=== PATIENT | male | born 1960 | race Caucasian/White ===

== ENCOUNTER → 2016-09-30 | Outpatient (CLI) | payer OTHER ==
[~2016-09-30] MED LIST: LEVO500T69 PO; MECL-106 PO; PANT40TA3 PO; PNT40TEC PO; PROM25TA14 PO
--- OUTSIDE RECORDS SUMMARY | 2016-09-30 08:37 | XMS REPORT | Continuity of Care Document ---
Author Author [facility] Organization [facility] Address Unknown Phone Unavailable Care Team Providers Care Ui Lead Developer Name Role Phone OLGA SOLORZANO MD PCP Insurance Providers Payer Name Policy Number Subscriber Name Relationship [facility] [id number] Hayden Oviedo 20 Self / Same As Patient Advance Directives Directive Response Recorded Date/Time Advance Directives Yes 12/31/15 10:29pm Health Care Power of Fuel Injection Servicer No 12/31/15 10:29pm Organ Donor Yes 12/31/15 10:29pm Resuscitation Status Full Code 12/31/15 10:29pm Chief Complaint and Reason for Visit Chief Complaint Abdominal/GI Problems Reason for Visit Elevated liver enzymes Vertigo Nausea and vomiting Problems Active Problems Medical Problem Onset Date Status Elevated liver enzymes Unknown Acute Nausea and vomiting Unknown Acute Puncture wound of foot, right Unknown Acute Vertigo Unknown Acute Medications Current Home Medications Medication Dose Units Route Directions Days/Qty Instructions Start Date Levofloxacin 500 Mg 1 Each Oral Daily 5 12/06/14 Pantoprazole Sodium 40 Mg 1 Tab Oral Daily 90 Days 12/31/15 Promethazine Hcl (Phenergan Tablet) 25 Mg 25 Mg Oral Every 6 Hours as needed for Nausea/Vomiting 20 01/01/16 Meclizine Hcl 25 Mg 25 Mg Oral Every 6 Hours 30 01/01/16 Past Home Medications Medication Directions Ordered Status Pantoprazole Sodium 40 Mg Tablet., 1 Tab Oral Daily 02/12/10 Discontinued Social History Social History Problem Response Recorded Date/Time Alcohol Use Occasionally Uses 12/31/2015 10:29pm Recreational Drug Use No 12/31/2015 10:29pm Recent Foreign Travel No 12/31/2015 10:29pm Recent Infectious Disease Exposure No 12/31/2015 10:29pm Hospitalization with Isolation Denies 12/31/2015 10:29pm Sexually Transmitted Disease No 12/31/2015 10:29pm Smoking Status Current Everyday Smoker 12/31/2015 10:29pm Query Response Start Date Stop Date Smoking Status Current Everyday Smoker Hospital Discharge Instructions No hospital discharge instructions. Plan of Care Discharge Date 01/01/16 1:44am Disposition 01 HOME, SELF-CARE Condition at Discharge Improved Instructions/Education Provided Vertigo (ED) Acute Nausea and Vomiting (ED) Prescriptions See Medication Section Referrals OLGA SOLORZANO MD - Primary Care Physician Additional Instructions/Education Follow-up with your primary care provider and/or Dr. Wallace as soon as possible. Use Zofran dissolved under the tongue every 4 hours as needed for nausea until you can fill the Phenergan prescription. Use Phenergan as prescribed for nausea and dizziness. You may additionally take meclizine for further treatment of dizziness. Repeat the Racheal maneuver as needed if vertigo returns. All discharge instructions reviewed with patient and/or family. Voiced understanding. Functional Status No functional status results. Allergies, Adverse Reactions, Alerts No known allergies. Immunizations Name Given Type Tetanus Booster (TDap) More than 5yrs Historical Vital Signs Acute Vital Signs Vital Response Date/Time Temperature (Fahrenheit) 97.6 degrees F (97.6 - 99.5) 12/31/2015 10:29pm Temperature (Calculated Celsius) 36.15539 degrees C (36.4 - 37.5) 12/31/2015 10:29pm Temperature Source Temporal 12/31/2015 10:29pm Pulse Rate (adult) 60 bpm (60 - 90) 01/01/2016 1:38am Respiratory Rate 16 bpm (12 - 24) 01/01/2016 1:38am O2 Sat by Pulse Oximetry 99 % (88 - 100) 01/01/2016 1:38am Blood Pressure 121/70 mm Hg 01/01/2016 1:38am Blood Pressure Mean 97 mm Hg 12/31/2015 10:29pm Pain Pain Intensity 2 12/31/2015 10:29pm Height (Feet) 6 feet 12/31/2015 10:29pm Height (Inches) 3 inches 12/31/2015 10:29pm Height (Calculated Centimeters) 190.456020 cm 12/31/2015 10:29pm Weight (Pounds) 281 pounds 12/31/2015 10:29pm Weight (Calculated Kilograms) 127.498947 kilograms 12/31/2015 10:29pm Height 6 ft 3 in Weight 281 lb Body Mass Index 35.1 kg/m^2 Results Laboratory Results Test Name Result Units Flags Reference Collection Date/Time Result Date/ Time Comments White Blood Count 7.4 10^3/uL 4.3-11.0 12/31/2015 10:43pm 12/31/2015 10 :53pm Red Blood Count 4.72 10^6/uL 4.35-5.85 12/31/2015 10:43pm 12/31/2015 10 :53pm Hemoglobin 15.0 G/DL 13.3-17.7 12/31/2015 10:43pm 12/31/2015 10:53pm Hematocrit 40 % 40-54 12/31/2015 10:43pm 12/31/2015 10:53pm Mean Corpuscular Volume 86 FL 80-99 12/31/2015 10:43pm 12/31/2015 10: 53pm Mean Corpuscular Hemoglobin 32 PG 25-34 12/31/2015 10:43pm 12/31/2015 10:53pm Mean Corpuscular Hemoglobin Concent 37 G/DL H 32-36 12/31/2015 10:43pm 10:53pm Red Cell Distribution Width 12.8 % 10.0-14.5 12/31/2015 10:43pm 2015 10:53pm Platelet Count 151 10^3/uL 130-400 12/31/2015 10:43pm 12/31/2015 10: 53pm Mean Platelet Volume 9.3 FL 7.4-10.4 12/31/2015 10:43pm 12/31/2015 10: 53pm Neutrophils (%) (Auto) 77 % H 42-75 12/31/2015 10:43pm 12/31/2015 10: 53pm Lymphocytes (%) (Auto) 13 % 12-44 12/31/2015 10:43pm 12/31/2015 10: 53pm Monocytes (%) (Auto) 6 % 0-12 12/31/2015 10:43pm 12/31/2015 10:53pm Eosinophils (%) (Auto) 4 % 0-10 12/31/2015 10:43pm 12/31/2015 10:53pm Basophils (%) (Auto) 0 % 0-10 12/31/2015 10:43pm 12/31/2015 10:53pm Neutrophils # (Auto) 5.7 X 10^3 1.8-7.8 12/31/2015 10:43pm 12/31/2015 10:53pm Lymphocytes # (Auto) 1.0 X 10^3 1.0-4.0 12/31/2015 10:43pm 12/31/2015 10:53pm Monocytes # (Auto) 0.4 X 10^3 0.0-1.0 12/31/2015 10:43pm 12/31/2015 10: 53pm Eosinophils # (Auto) 0.3 10^3/uL 0.0-0.3 12/31/2015 10:43pm 12/31/2015 10:53pm Basophils # (Auto) 0.0 10^3/uL 0.0-0.1 12/31/2015 10:43pm 12/31/2015 10 :53pm Prothrombin Time 14.8 SEC H 12.2-14.7 12/31/2015 10:43pm 12/31/2015 11: 10pm INR Comment 1.2 0.8-1.4 12/31/2015 10:43pm 12/31/2015 11:10pm INTERPRETIVE DATA SUGGESTED THERAPEUTIC RANGE FOR INR'S: VENOUS THROMBOSIS, PULMONARY EMBOLISM, OR PREVENTION OF SYSTEMIC EMBOLISM (EG. IN ATRIAL FIBRILLATION): 2.0 - 3.0 MECHANICAL PROSTHETIC HEART VALVES: 2.5 - 3.5* *NOTE: INR'S UP TO 4.5 MAY BE NECESSARY IN SELECTED GROUPS OF HIGH RISK PATIENTS. [employer] CONSENSUS CONFERENCE ON ANTITHROMBOTIC THERAPY (2000). Activated Partial Thromboplast Time 28 SEC 24-35 12/31/2015 10:43pm 07/2016 11:10pm Sodium Level 139 MMOL/L 135-145 12/31/2015 10:43pm 12/31/2015 11:11pm Potassium Level 3.4 MMOL/L L 3.6-5.0 12/31/2015 10:43pm 12/31/2015 11: 11pm Chloride Level 101 MMOL/L 98-107 12/31/2015 10:43pm 12/31/2015 11:11pm Carbon Dioxide Level 24 MMOL/L 21-32 12/31/2015 10:43pm 12/31/2015 11: 11pm Anion Gap 14 MMOL/L 5-14 12/31/2015 10:43pm 12/31/2015 11:11pm Blood Urea Nitrogen 14 MG/DL 7-18 12/31/2015 10:43pm 12/31/2015 11: 11pm Creatinine 1.11 MG/DL 0.60-1.30 12/31/2015 10:43pm 12/31/2015 11:11pm BUN/Creatinine Ratio 13 12/31/2015 10:43pm 12/31/2015 11:11pm Estimat Glomerular Filtration Rate > 60 12/31/2015 10:43pm 2015 11:11pm GFR INTERPRETIVE DATA UNITS FOR ESTIMATED GFR (eGFR): mL/min/1.73 M2 REFERENCE RANGE FOR ESTIMATED GFR (eGFR) eGFR NORMAL eGFR >60 MODERATELY DECREASED eGFR 30-59 SEVERLY DECREASED eGFR 15-29 KIDNEY FAILURE <15 (OR DIALYSIS) Glucose Level 171 MG/DL H 70-105 12/31/2015 10:43pm 12/31/2015 11:11pm Calcium Level 9.2 MG/DL 8.5-10.1 12/31/2015 10:43pm 12/31/2015 11:11pm Magnesium Level 2.4 MG/DL 1.8-2.4 12/31/2015 10:43pm 12/31/2015 11: 20pm Total Bilirubin 1.9 MG/DL H 0.1-1.0 12/31/2015 10:43pm 12/31/2015 11: 11pm Alkaline Phosphatase 85 U/L 40-136 12/31/2015 10:43pm 12/31/2015 11: 11pm Aspartate Amino Transf (AST/SGOT) 52 U/L H 5-34 12/31/2015 10:43pm 2015 11:11pm Alanine Aminotransferase (ALT/SGPT) 60 U/L H 0-55 12/31/2015 10:43pm 07/2016 11:11pm Troponin I < 0.30 NG/ML <0.30 12/31/2015 10:43pm 12/31/2015 11:20pm Myoglobin 118.0 NG/ML H 10.0-92.0 12/31/2015 10:43pm 12/31/2015 11:20pm Total Protein 7.8 G/DL 6.4-8.2 12/31/2015 10:43pm 12/31/2015 11:11pm Albumin 4.5 G/DL 3.2-4.5 12/31/2015 10:43pm 12/31/2015 11:11pm Lipase 36 U/L 8-78 12/31/2015 10:43pm 12/31/2015 11:11pm Procedures Procedure Status Date Provider(s) Tracing only of electrocardiogram Active 12/31/15 NASIM MENESES MD Tracing only of electrocardiogram Active 12/31/15 NASIM MENESES MD Encounters Encounter Location Arrival/Admit Date Discharge/Depart Date Attending Provider Registered Emergency Room [facility] 12/31/15 9:46pm NASIM MENESES MD Recent Diagnosis
--- NOTE | 2016-10-05 10:12 | ECHOCARDIOGRAPHY REPORT ---
PROCEDURE PHYSICIAN: VASQUEZ OBANDO DATE OF PROCEDURE: 09/30/2016 TWO DIMENSIONAL ECHOCARDIOGRAM REPORT PRIMARY PHYSICIAN: Dr. Baker OTHER PHYSICIAN: REFERRING PHYSICIAN: ORDERING PHYSICIAN: Dr. Obando INDICATION FOR THE PROCEDURE: 1. Cardiac murmur. 2. Exertional shortness of breath. MEASUREMENTS DERIVED VALUES LV DIAMETER (LAX) NORMALS NORMALS Diastolic 4.9 (3.6-5.2) Eject. Fract. (60%+/-6%) Systolic (2.3-3.9) Diastolic Vol. % Shortening (0.22-0.42) Systolic Vol. Aortic Root 3.8 IVS THICKNESS Diastolic 1 (0.6-1.1) LVPW THICKNESS Diastolic 1.1 (0.6-1.1) LA DIAMETER Systolic 5 (2.1-3.7) DESCRIPTION: Two-dimensional echocardiography shows normal global left ventricular systolic function with normal regional wall motion. Aortic, mitral and tricuspid valve leaflets show good leaflet excursion. There is no significant pericardial effusion. There is moderate enlargement of the left atrium. Doppler shows trivial mitral, tricuspid, aortic and pulmonic regurgitation. No Doppler evidence of significant valvular stenosis. Pulmonary artery systolic pressure is estimated to be within normal limits. Peak pressure gradient across the aortic valve is approximately 20 mmHg with a mean gradient of approximately 12 mmHg and valve area of approximately 4 sq cm. There appears to be mild aortic valve sclerosis and mild mitral annular calcification. There is no evidence of significant intracardiac shunt on this transthoracic echocardiographic study. Inferior vena cava does not seem to be significantly dilated. CONCLUSIONS: 1. Technically difficult study. 2. Normal global left ventricular systolic function with an ejection fraction of approximately 65%. 3. Moderate enlargement of the atrium. 4. Mild aortic valve sclerosis and mitral annular calcification without any evidence of valvular stenosis. 5. Trivial tricuspid, mitral, aortic and pulmonic regurgitation. 6. Pulmonary artery systolic pressure is estimated to be within normal limits. Job ID: [id number] Dictated Date: 10/05/2016 08:54:12 Supervisor [employer] Date: 10/05/2016 10:05:21 / yvon
== END ==
LOC: CARD 08:33
PROVIDERS: ATTEND Internal Medicine Cardiovascular Disease
DX: R01.2 Other cardiac sounds (principal); R06.09 Other forms of dyspnea; G47.33 Obstructive sleep apnea (adult) (pediatric); Z72.0 Tobacco use
CPT/HCPCS: 93306

== ENCOUNTER → 2016-10-11 | Outpatient (CLI) | payer OTHER ==
--- OUTSIDE RECORDS SUMMARY | 2016-10-11 16:10 | XMS REPORT | Continuity of Care Document ---
Author Author [facility] Organization [facility] Address Unknown Phone Unavailable Care Team Providers Care Director Of Agronomy Name Role Phone OLGA SOLORZANO MD PCP Insurance Providers Payer Name Policy Number Subscriber Name Relationship [facility] [id number] Hayden Oviedo 20 Self / Same As Patient Advance Directives Directive Response Recorded Date/Time Advance Directives Yes 12/31/15 10:29pm Health Care Power of Clerk General No 12/31/15 10:29pm Organ Donor Yes 12/31/15 [...] - 99.5) 12/31/2015 10:29pm Temperature (Calculated Celsius) 36.30733 degrees C (36.4 - 37.5) 12/31/2015 10:29pm [...] 3 inches 12/31/2015 10:29pm Height (Calculated Centimeters) 190.520573 cm 12/31/2015 10:29pm Weight (Pounds) 281 pounds 12/31/2015 10:29pm Weight (Calculated Kilograms) 127.576612 kilograms 12/31/2015 10:29pm Height 6 ft 3 [...] SELECTED GROUPS OF HIGH RISK PATIENTS. [employer] CONSENSUS CONFERENCE ON [...] Date Attending Provider Registered Emergency Room [facility] 12/31/15 9:46pm NASIM MENESES MD Recent Diagnosis
--- NOTE | 2016-10-11 16:49 | Diagnostic Imaging Report ---
INDICATION: Cough and fever. EXAMINATION: PA and lateral views of the chest are obtained. COMPARISON: Comparison is made to the study of 12/31/2015. FINDINGS: Heart size and pulmonary vascularity are within normal limits. There is no pneumothorax or consolidation. Minimal linear atelectasis and/or scarring is noted in the bases. There is no consolidation, pleural fluid, or other adverse change. IMPRESSION: Minimal linear atelectasis or scarring in the lung bases without new abnormality or other adverse change detected. Dictated by: Dictated on workstation # [id number]
== END ==
LOC: RAD 16:07
PROVIDERS: ATTEND Nurse Practitioner Family
DX: R50.9 Fever, unspecified (principal); Z72.0 Tobacco use
CPT/HCPCS: 71020; 87804

== ENCOUNTER → 2017-11-27 | Outpatient (CLI) | payer OTHER ==
[~2017-11-27] MED LIST changes: +RT-ALBUTEROL SULF 2.5 MG/3 ML PRE-MIX VIAL INH ONE
== END ==
LOC: RT 08:36
PROVIDERS: ATTEND Nurse Practitioner Family
DX: J30.9 Allergic rhinitis, unspecified (principal); R05 Cough; R06.09 Other forms of dyspnea
CPT/HCPCS: 94060; 94726; 94729